=== PATIENT | female | born 1945 | race Caucasian/White ===

== ENCOUNTER 2017-12-12 05:49 | Inpatient (IN) | payer OTHER ==
[2017-11-29 10:51] VITALS: BMI 41.0
--- NOTE | 2017-11-29 11:20 | PAT Medication Instructions ---
Service Date Nov 29, 2017. Current Home Medication List Aspirin (Aspirin 81), 1 TAB PO QPM Celecoxib (CeleBREX), 400 MG PO QAM Cholecalciferol (Vitamin D-3), 1 TAB PO BID Lisinopril (Lisinopril), 1 TAB PO QAM Potassium Chloride (Potassium Chloride Cr), 1 TAB PO TID Ranitidine (Zantac), 1 TAB PO BID Tramadol (Ultram), 50 MG PO Q8H PRN for Pain Medication Instructions For Your Scheduled Surgery -Check with your surgeon for instructions for: Celecoxib (CeleBREX), 400 MG PO QAM - Hold the following medications the morning of surgery: Cholecalciferol (Vitamin D-3), 1 TAB PO BID Lisinopril (Lisinopril), 1 TAB PO QAM Potassium Chloride (Potassium Chloride Cr), 1 TAB PO TID - Take the following medications the morning of surgery with a sip of water: Ranitidine (Zantac), 1 TAB PO BID Tramadol (Ultram), 50 MG PO Q8H PRN for Pain (if needed, can be taken up to four hours before surgery) - Take the following medications as scheduled the night before surgery: Aspirin (Aspirin 81), 1 TAB PO QPM Cholecalciferol (Vitamin D-3), 1 TAB PO BID Potassium Chloride (Potassium Chloride Cr), 1 TAB PO TID Ranitidine (Zantac), 1 TAB PO BID Tramadol (Ultram), 50 MG PO Q8H PRN for Pain (if needed) If you have any questions please call us at [phone] or [phone] or [phone]
--- NOTE | 2017-11-29 12:37 | DIAGNOSTIC IMAGING REPORT ---
CHEST 2 VIEWS ROUTINE CLINICAL HISTORY: PAT preoperative evaluation COMPARISON STUDY: 11/27/2015 FINDINGS: The marker and image is rotated on this study. There are findings of mild stable cardia megaly. Lungs are clear. Diaphragms are smooth. A scoliosis of the spine is present. IMPRESSION: No acute process. Localization markers are placed incorrectly on this exam. Study is considered negative regardless. The above report was generated using voice recognition software. It may contain grammatical, syntax or spelling errors. Electronically signed by: Vinicius Alas M.D. 11/29/2017 12:36 PM Dictated Date/Time: 11/29/2017 12:35 PM
[2017-11-29 13:01] LABS: BASO % 0.3 %; BASO ABS # 0.02 K/uL (0-0.2); EOS % 2.9 %; EOS ABS # 0.17 K/uL (0-0.5); HEMATOCRIT 42.4 % (37-47); HEMOGLOBIN 14.3 g/dL (12.0-16.0); IG# 0.02 K/uL (0.00-0.02); LYMPH % 26.9 %; LYMPH ABS # 1.57 K/uL (1.2-3.4); MEAN CELL VOLUME 90.6 fL (80-100); MEAN CORPUSCULAR HEMOGLOBIN 30.6 pg (25-34); MEAN CORPUSCULAR HGB CONC 33.7 g/dl (32-36); MEAN PLATELET VOLUME 10.5 fL (7.4-10.4); MONO % 9.4 %; MONO ABS # 0.55 K/uL (0.11-0.59); NEUT % 60.2 %; NEUT ABS # 3.51 K/uL (1.4-6.5); PLATELET COUNT 169 K/uL (130-400); RED CELL DISTRIBUTION WIDTH CV 13.3 % (11.5-14.5); RED CELL DISTRIBUTION WIDTH SD 43.8 fL (36.4-46.3); WHITE BLOOD COUNT 5.84 K/uL (4.8-10.8)
[2017-11-29 13:12] LABS: INR 1.1 (0.9-1.1); PTT PATIENT 28.6 SECONDS (21.0-31.0)
[2017-11-29 13:32] LABS: HEMOGLOBIN A1C 4.8 % (4.5-5.6)
[2017-11-29 13:33] LABS: CREATININE 0.8 mg/dl (0.60-1.20)
[2017-11-29 13:34] LABS: ALBUMIN 3.5 gm/dl (3.4-5.0); CALCIUM 9.3 mg/dl (8.5-10.1); POTASSIUM 4.3 mmol/L (3.5-5.1)
--- NOTE | 2017-12-04 13:21 | HISTORY & PHYSICAL EXAMINATION ---
DATE OF ADMISSION: 12/12/2017 CHIEF COMPLAINT: Right knee pain. HISTORY OF PRESENT ILLNESS: Minerva is a 72-year-old female with a multiple year history of right knee pain. The patient rates her pain an 8/10. She has pain with her daily activities. She has limited standing and walking tolerance. Pain is worse with weightbearing. The patient has had injections, NSAID, tramadol, bracing, and home exercise program without relief. She has failed conservative treatment and is scheduled for right knee replacement. PAST MEDICAL HISTORY: Hypertension, hypercholesterolemia, thyroid disease, obesity. She denies heart disease, diabetes or DVT. PAST SURGICAL HISTORY: Left TKA 2015. SOCIAL HISTORY: The patient denies alcohol or tobacco use. She lives in a 2-story home. She is and retired. FAMILY HISTORY: Negative for DVT. MEDICATIONS: Aspirin 81 mg daily, tramadol 50 mg t.i.d. p.r.n., ranitidine 150 mg b.i.d., Klor-Con 10 mEq 3 tablets daily, Celebrex 200 mg b.i.d., lisinopril 20 mg daily, Vitamin D3 1000 units 2 capsules daily, Centrum Silver. ALLERGIES: BACTRIM CAUSES A RASH. REVIEW OF SYSTEMS: See HPI. Ten other systems reviewed, all negative. PHYSICAL EXAMINATION: VITAL SIGNS: Height 5 feet 7 inches, weight 264 pounds, BMI 41. GENERAL: This is a well-developed, well-nourished female who is alert and oriented x3. Mood and affect are appropriate. HEENT: Normocephalic, atraumatic. Mucous membranes are moist and intact. NECK: Supple without lymphadenopathy. HEART: Regular rate and rhythm without murmurs, rubs or gallops. LUNGS: Clear to auscultation without wheezes or rhonchi. ABDOMEN: Soft and nontender. Bowel sounds are equal and active. EXTREMITIES: No ecchymosis, redness or warmth. She has a valgus deformity. Range of motion is from 5-100 degrees. She has no laxity. She is neurovascularly intact with +5/5 strength. X-RAY EXAMINATION: AP and lateral views show joint space narrowing and osteophyte formation. IMPRESSION: Degenerative joint disease, right knee. PLAN: The patient will be admitted for a right total knee arthroplasty with Dr. Pineda. We will plan on aspirin for DVT prophylaxis.
[~2017-12-12] VITALS: Ht 170.2 cm; Wt 120.9 kg
[2017-12-12] VITALS (9 sets, daily range): BP systolic 106–177; BP diastolic 63–81; PULSE 48–67; TEMP 36.2–36.6; O2SAT 95–99; Ht 170.2 cm; Wt 120.9 kg
[~2017-12-12 05:49] MED LIST: ASPI-435 PO; CHOL1CAP67 PO; CLB/200 PO; LSN20 PO; POTA10TA30 PO; RANI150T85 PO; TRAM-10 PO
[2017-12-12] MEDS ORDERED: CeleBREX 200 MG CAP PO SCH (06:00)
[2017-12-12] MEDS ORDERED: CEFAZOLIN 3000MG IV PUSH 22.5 ML IV SCH (06:00)
[2017-12-12] MEDS ORDERED: ROPIVACAINE 5MG/ML 30 ML 150 MG, BUPIVACAINE 0.5% MPF INJ 30 ML, EpINEphrine HCL INJ 0.... INFIL SCH ×8 (06:00)
[2017-12-12] MEDS ORDERED: ACETAMINOPHEN 500 MG TAB PO SCH (06:00)
[2017-12-12] MEDS ORDERED: DEXAMETHASONE 4 MG TAB PO SCH (06:00)
[2017-12-12] MEDS ORDERED: GABAPENTIN 300 MG CAP PO SCH (06:00)
[2017-12-12] MEDS ORDERED: FAMOTIDINE 20 MG TAB PO SCH (06:00)
[2017-12-12] MEDS ORDERED: LACTATED RINGER'S 1000ML 500 ML IV SCH (06:00)
[2017-12-12] MEDS ORDERED: LACTATED RINGER'S 1000ML 1,000 ML IV SCH (06:00)
[2017-12-12] MEDS ORDERED: METOCLOPRAMIDE HCL 10 MG TAB PO SCH (06:00)
[2017-12-12] MEDS ORDERED: ORTHO JOINT ANESTHETIC ONE (07:02)
[2017-12-12] MEDS ORDERED: POVIDONE-IODINE OP SOLN 30 ML BTL ONE (07:02)
[2017-12-12] MEDS ORDERED: BACITRACIN 50000 UNIT VIAL ONE (07:03)
--- NOTE | 2017-12-12 07:06 | History & Physical Bridge Note ---
H&P Re-Evaluation Bridge Note: I have examined the patient, reviewed the History & Physical and in the interval since the performance of the History & Physical I have noted the following changes of clinical significance: No changes noted
[2017-12-12] MEDS ORDERED: KFL/250 PO (07:14)
[2017-12-12] MEDS ORDERED: ROPIVACAINE 0.5% 5 MG/ML 30 ML VIAL ONE (07:32)
[2017-12-12] MEDS ORDERED: BUPIVACAINE 0.5 % 5 MG/1 ML PF 10ML VIAL ONE (07:32)
[2017-12-12] MEDS ORDERED: MIDAZOLAM HCL 1 MG/ML 2ML VIAL ONE ×2 (08:07)
[2017-12-12] MEDS ORDERED: FENTANYL CITRATE INJ 50 MCG/1 ML 2 ML VIAL ONE (08:07)
[2017-12-12] MEDS: TRANEXAMIC ACID INJ 1,000 MG x 2 Bags IV SCH ×4 (08:16→09:20)
[2017-12-12] MEDS ORDERED: PROPOFOL IV EMULSION 10 MG/ML 20 ML VIAL ONE (09:14)
[2017-12-12] MEDS ORDERED: ROCURONIUM BROMIDE 10 MG/ML 5 ML VIAL ONE (09:15)
[2017-12-12] MEDS ORDERED: LIDOCAINE HCL 2% 2 ML VIAL (20MG/ML) ONE (09:15)
[2017-12-12] MEDS ORDERED: ONDANSETRON INJ 2 MG/ML 2 ML VIAL ONE (09:16)
[2017-12-12] MEDS ORDERED: GLYCOPYRROLATE INJ 0.2 MG/ML VIAL ONE (09:16)
[2017-12-12] MEDS ORDERED: DEXAMETHASONE SOD INJ 4 MG/ML VIAL ONE (09:16)
[2017-12-12] MEDS ORDERED: NEOSTIGMINE METHYLSULFATE 5 MG/5 ML SYR ONE (09:16)
--- NOTE | 2017-12-12 09:33 | [facility] Post Operative Brief Note ---
Immediate Operative Summary Operative Date December 12, 2017. Pre-Operative Diagnosis Degenerative Joint Disease, Right Knee Post-Operative Diagnosis Degenerative Joint Disease, Right Knee Procedure(s) Performed Right Total Knee Arthroplasty utilizing Michele nephenMarkit journey to non-block total knee arthroplasty size 5 femur 5 tibia 10 polyethylene [address] Js Pineda Cell Tender Helper Surgeon(s) Sanford Araujo PA-C, Dr. Conrado Tate Estimated Blood Loss 5mL Findings Consistent with Post-Op Diagnosis Specimens Permanent Solution: A.) Right Knee Bone and Tissue Anesthesia Type General Complication(s) none Disposition Disposition: Recovery Room / PACU
--- NOTE | 2017-12-12 09:34 | [facility] Operative Report ---
Operative Report Operative Date December 12, 2017. Pre-Operative Diagnosis Degenerative Joint Disease, Right Knee Post-Operative Diagnosis Degenerative Joint Disease, Right Knee Procedure(s) Performed Right Total Knee Arthroplasty utilizing Michele G[employer] journey to non-block total knee arthroplasty size 5 femur 5 tibia 10 polyethylene [address] Js Pineda Pan Washer Surgeon(s) Sanford Araujo PA-C, Dr. Conrado Tate Estimated Blood Loss 5mL Findings Intraoperative findings include severe end-stage DJD subchondral cystic changes eburnated bone marginal osteophytes varus alignment with [id number] degenerative changes Specimens Permanent Solution: A.) Right Knee Bone and Tissue Anesthesia Type General Complication(s) none Disposition Recovery Room / PACU Indications Patient presents after failed attempts at conservative management including physical therapy anti-inflammatories relative rest of the examination revealed to be evidence of crepitation medial joint line pain tenderness moderate effusion with joint line pain tenderness with a positive Javed circumduction findings pseudo-ligamentous laxity although response to injections anti- inflammatories and bracing Description of Procedure After proper prepping and draping of the Right lower extremity anterior midline incision was made over the region of the extensor extensor mechanism after meticulous hemostasis was obtained and maintained in subcutaneous tissues a medial parapatellar incision was made The patella was subluxed lateralward the medial lateral gutter were cleaned from any hypertrophic synovitis and scar tissue of the distal femoral block was placed and the distal femoral osteotomy cut was made subsequently the chamfers anterior and posterior osteotomy cuts were made utilizing the 4-in-1 block the tibia was subsequently subluxed anteriorward medial and ateral meniscal remnants were excised in their entirety remnants of the anterior and posterior cruciate ligaments were excised in their entirety excellent exposure of the proximal tibia was obtained the tibial osteotomy guide was placed on the proximal tibial osteotomy cut was made once again the knee was irrigated with copious amounts of sterile saline solution the patella was subsequently everted lateralward thickened scar tissue around the patella was removed the patella was subsequently cut utilizing a freehand technique and was drilled prepared for final preparation and placement of patella socially flexion-extension gaps were checked and the equal and symmetric trials were placed to the appropriate femoral and tibial trials with poly-spacer being placed for equal flexion and extension gaps and full range of motion including extension to 0 and flexion to 140 the trial components after having been taken to recovery range of motion was subsequently removed meticulous hemostasis was obtained and maintained subsequently a knee block injection of joint cocktail including ropivacaine 0.5% 150 mg. Bupivacaine 0.5 % epinephrine 1-200,030 mL's toradol 30 mg dexamethasone 4 mg ketamine 10 mg clonidine 100 micrograms normal saline solution 30 mg was infiltrated into the soft tissues of the posterior knee medial lateral gutters and periosteal synovium special attention was paid to protect neurovascular structures at all times subsequently trial components having been removed the knee was irrigated with sterile saline solution. debris was removed the proximal tibia was subsequently prepared and was made ready for the placement of the tibial component tibial component was also cemented and tamped into position the femoral component was subsequently placed and cemented in the position the patellar component was subsequently cemented in position because hemostasis once again obtained and maintained wound having been thoroughly irrigated with debridement and debridement lavage was performed as well as a medial parapatellar incision closed with #1 Vicryl in interrupted fashion subcutaneous was closed with #2 Vicryl skin was closed with skin clips. PA-C was necessary for prepping and drapping as well as wound closure of deep fascia Sub cutaneous tissue and skin and was necessary for the case. A sterile compressive dressing was placed patient was taken to recovery in stable condition of report dictated by Edwin I attest to the content of the Intraoperative Record and any orders documented therein. Any exceptions are noted below. I attest to the content of the Intraoperative Record and any orders documented therein. Any exceptions are noted below.
[2017-12-12] MEDS ORDERED: EpHEDrine SULFATE 50MG/5ML SYR ONE (09:51)
[2017-12-12] MEDS ORDERED: EpHEDrine SULFATE INJ 50 MG/ML AMP IV PRN (10:00)
[2017-12-12] MEDS ORDERED: LABETALOL HCL IV 5 MG/ML 20ML IV PRN (10:00)
[2017-12-12] MEDS ORDERED: HYDROmorphone INJ 0.5 MG/0.5 ML SYR IV PRN (10:00)
[2017-12-12] MEDS ORDERED: MEPERIDINE HCL 25 MG/ML CARP IV PRN (10:00)
[2017-12-12] MEDS ORDERED: ATROPINE SULFATE 0.1 MG/ML 5ML SYR IV PRN (10:00)
[2017-12-12] MEDS ORDERED: FENTANYL CITRATE INJ 50 MCG/1 ML 2 ML VIAL IV PRN (10:00)
[2017-12-12] MEDS ORDERED: ONDANSETRON INJ 2 MG/ML 2 ML VIAL IV PRN ×2 (10:00→10:15)
[2017-12-12] MEDS ORDERED: CEFAZOLIN IV 2,000 MG in DEXTROSE 5% 50ML 50 ML IV SCH (10:15)
[2017-12-12] MEDS ORDERED: MAGNESIUM HYDROXIDE SUSP 30 ML UDC PO PRN (10:15)
[2017-12-12] MEDS ORDERED: TRAMADOL HCL 50 MG TAB PO PRN (10:15)
[2017-12-12] MEDS ORDERED: BISACODYL 10 MG SUPP PR PRN (10:15)
[2017-12-12] MEDS ORDERED: ALUMINUM/MAGNESIUM/SIMETH (MAALOX MAX) 30 ML UDC PO PRN (10:15)
[2017-12-12] MEDS ORDERED: MoRPHine SULFATE 4 MG/ML 1 ML CARP\\VIAL IV PRN (10:15)
--- NOTE | 2017-12-12 10:34 | DIAGNOSTIC IMAGING REPORT ---
RIGHT KNEE 2 VIEWS History: Right total knee arthroplasty. Degenerative arthritis. Postop. FINDINGS: The patient is status post a right total knee arthroplasty. The hardware is intact. No fracture or dislocation. Skin blayne and surgical drains are in place. IMPRESSION: Right total knee arthroplasty. No evidence for hardware complication. Electronically signed by: Alex Moraes M.D. 12/12/2017 10:33 AM Dictated Date/Time: 12/12/2017 10:32 AM
--- NOTE | 2017-12-12 11:57 | Anesthesiology Progress Note ---
Anesthesia Post Op Note Date & Time December 12, 2017 at 11:57 Vital Signs Pain Intensity: 0.0 Vital Signs Past 12 Hours Date Time Temp Pulse Resp B/P (MAP) Pulse Ox O2 Delivery O2 Flow Rate FiO2 12/12/17 11:42 48 17 151/65 (93) 98 Nasal Cannula 2.0 12/12/17 11:10 36.4 56 16 155/78 (103) 98 Nasal Cannula 2.0 12/12/17 11:10 Nasal Cannula 2.0 12/12/17 11:10 Nasal Cannula 2.0 12/12/17 11:00 52 16 165/68 99 Nasal Cannula 2 12/12/17 10:50 36.0 57 15 152/56 100 Nasal Cannula 2 12/12/17 10:40 58 17 138/58 96 Nasal Cannula 2 12/12/17 10:30 57 14 142/68 94 Oxymask 8 12/12/17 10:20 63 15 163/72 97 Oxymask 8 12/12/17 10:13 36.2 83 16 160/74 93 Oxymask 8 12/12/17 06:50 36.6 54 20 177/81 99 Room Air Notes Mental Status: alert / awake / arousable, participated in evaluation Pt Amnestic to Procedure: Yes Nausea / Vomiting: adequately controlled Pain: adequately controlled Airway Patency, RR, SpO2: stable & adequate BP & HR: stable & adequate Hydration State: stable & adequate Anesthetic Complications: no major complications apparent
[2017-12-12] MEDS: FERROUS GLUCONATE 324 MG TAB PO SCH ×2 (12:43→18:27)
[2017-12-12] MEDS: ACETAMINOPHEN 500 MG TAB PO SCH ×2 (12:43→19:14)
[2017-12-12] MEDS: POTASSIUM CHLORIDE 10 MEQ TABCR PO SCH ×2 (13:25→20:53)
[2017-12-12] MEDS: D5W AND 1/2NSS + 20MEQ KCL 1,000 ML IV SCH ×2 (13:25→23:06)
[2017-12-12] MEDS ORDERED: POTASSIUM CHLORIDE PO SCH (14:00)
[2017-12-12] MEDS: CEFAZOLIN IV 2,000 MG in SYRINGE 0 ML IV SCH ×2 (16:23→23:09)
[2017-12-12] MEDS: DOCUSATE SODIUM 100 MG CAP PO SCH (20:52)
[2017-12-12] MEDS: CeleBREX 200 MG CAP PO SCH (20:52)
[2017-12-12] MEDS: RANITIDINE HCL 150 MG TAB PO SCH (20:52)
[2017-12-12] MEDS: CHOLECALCIFEROL 1000 INTER.UNIT TAB PO SCH (20:52)
[2017-12-12] MEDS: SENNA 8.6 MG TAB PO SCH (20:52)
[2017-12-12] MEDS: ASPIRIN 81 MG ECTAB PO SCH (20:53)
[2017-12-12] MEDS ORDERED: CHOLECALCIFEROL PO SCH (21:00)
[2017-12-12] MEDS ORDERED: NURSING VERBAL MED ORDER ONE (21:00)
[2017-12-13 03:00] VITALS: BP 120/72; PULSE 50; TEMP 36.7; O2SAT 96
[2017-12-13] MEDS: ACETAMINOPHEN 500 MG TAB PO SCH ×3 (03:24→20:42)
[2017-12-13 07:03] LABS: HEMATOCRIT 35.5 % (37-47); HEMOGLOBIN 12.4 g/dL (12.0-16.0); MEAN CELL VOLUME 88.5 fL (80-100); MEAN CORPUSCULAR HEMOGLOBIN 30.9 pg (25-34); MEAN CORPUSCULAR HGB CONC 34.9 g/dl (32-36); PLATELET COUNT 148 K/uL (130-400); RED CELL DISTRIBUTION WIDTH CV 13.1 % (11.5-14.5); RED CELL DISTRIBUTION WIDTH SD 42.3 fL (36.4-46.3)
[2017-12-13 07:37] LABS: CALCIUM 8.2 mg/dl (8.5-10.1); CREATININE 0.97 mg/dl (0.60-1.20); POTASSIUM 4.6 mmol/L (3.5-5.1)
[2017-12-13 07:52] VITALS: BP 108/69; PULSE 54; TEMP 36.8; O2SAT 92
--- NOTE | 2017-12-13 07:58 | Orthopedic Progress Note ---
Orthopedic Progress Note Date of Service December 13, 2017. Subjective Post OP Day: 1 Reports: feeling well, Denies: chest pain, SOB, nausea / vomiting, light headedness, calf pain Objective calves soft nontender, N/V intact, capillary refill less than 2 sec., dressing C /D/I, A&O x3, toes mobile, hemovac drainage (475/200CC PER SHIFT) Date Time Temp Pulse Resp B/P (MAP) Pulse Ox O2 Delivery O2 Flow Rate FiO2 12/13/17 07:52 36.8 54 16 108/69 (82) 92 Room Air 12/13/17 03:00 36.7 50 14 120/72 (88) 96 Room Air 12/12/17 23:08 36.6 58 15 121/77 (92) 96 Room Air 12/12/17 19:58 36.3 67 16 109/66 (80) 95 Room Air 12/12/17 19:15 Room Air 12/12/17 16:16 Room Air 12/12/17 16:00 36.2 54 16 106/63 (77) 97 Room Air 12/12/17 14:07 61 17 132/77 (95) 98 Nasal Cannula 2.0 12/12/17 13:10 66 18 136/70 (92) 96 12/12/17 12:20 57 16 134/75 (94) 99 Nasal Cannula 2.0 12/12/17 11:42 48 17 151/65 (93) 98 Nasal Cannula 2.0 12/12/17 11:10 36.4 56 16 155/78 (103) 98 Nasal Cannula 2.0 12/12/17 11:10 Nasal Cannula 2.0 12/12/17 11:10 Nasal Cannula 2.0 12/12/17 11:00 52 16 165/68 99 Nasal Cannula 2 12/12/17 10:50 36.0 57 15 152/56 100 Nasal Cannula 2 12/12/17 10:40 58 17 138/58 96 Nasal Cannula 2 12/12/17 10:30 57 14 142/68 94 Oxymask 8 12/12/17 10:20 63 15 163/72 97 Oxymask 8 12/12/17 10:13 36.2 83 16 160/74 93 Oxymask 8 Laboratory Results 24 Hours: Test 12/13/17 06:51 Hematocrit 35.5 % Hemoglobin 12.4 g/dL Assessment & Plan Assessment: POD#1 SP RIGHT TKA Plan: PT/OT DVT PROPH- ASA 81MG BID PAIN MANAGEMENT- ALEJANDRA, TYLENOL DC PLANNING- DC HOME TOMORROW WITH HOME PT. DC DRESSING/DRAIN IN AM.
[2017-12-13] MEDS: RANITIDINE HCL 150 MG TAB PO SCH ×2 (08:42→20:44)
[2017-12-13] MEDS: DOCUSATE SODIUM 100 MG CAP PO SCH ×2 (08:42→20:42)
[2017-12-13] MEDS: POTASSIUM CHLORIDE 10 MEQ TABCR PO SCH ×3 (08:42→20:43)
[2017-12-13] MEDS: FERROUS GLUCONATE 324 MG TAB PO SCH ×3 (08:43→18:03)
[2017-12-13] MEDS: CHOLECALCIFEROL 1000 INTER.UNIT TAB PO SCH ×2 (08:43→20:42)
[2017-12-13] MEDS: ASPIRIN 81 MG ECTAB PO SCH ×2 (08:43→20:43)
[2017-12-13] MEDS: CeleBREX 200 MG CAP PO SCH ×2 (08:43→20:42)
[2017-12-13] MEDS: MULTIVITAMIN TAB PO SCH (08:43)
[2017-12-13] MEDS: D5W AND 1/2NSS + 20MEQ KCL 1,000 ML IV SCH (08:43)
[2017-12-13] MEDS: LISINOPRIL 20 MG TAB PO SCH (08:43)
[2017-12-13 11:01] VITALS: BP 158/74; PULSE 63; TEMP 36.9; O2SAT 99
[2017-12-13] MEDS: OXYCODONE HCL IR 5 MG TAB (IMMEDIATE RELEASE) PO PRN ×2 (11:13→22:22)
[2017-12-13 16:19] VITALS: BP 118/65; PULSE 66; TEMP 36.6; O2SAT 97
[2017-12-13] MEDS: SENNA 8.6 MG TAB PO SCH (20:43)
[2017-12-13 23:27] VITALS: BP 123/86; PULSE 69; TEMP 36.7; O2SAT 96
[2017-12-14] MEDS: ACETAMINOPHEN 500 MG TAB PO SCH ×2 (04:32→12:44)
[2017-12-14 06:14] VITALS: BP 109/71; PULSE 54; TEMP 36.7; O2SAT 96
[2017-12-14] MEDS: CeleBREX 200 MG CAP PO SCH (07:20)
[2017-12-14] MEDS: RANITIDINE HCL 150 MG TAB PO SCH (07:21)
[2017-12-14] MEDS: LISINOPRIL 20 MG TAB PO SCH (07:21)
[2017-12-14] MEDS: DOCUSATE SODIUM 100 MG CAP PO SCH (07:21)
[2017-12-14] MEDS: POTASSIUM CHLORIDE 10 MEQ TABCR PO SCH (07:21)
[2017-12-14] MEDS: FERROUS GLUCONATE 324 MG TAB PO SCH ×2 (07:21→12:43)
[2017-12-14] MEDS: MULTIVITAMIN TAB PO SCH (07:21)
[2017-12-14] MEDS: ASPIRIN 81 MG ECTAB PO SCH (07:22)
[2017-12-14] MEDS: OXYCODONE HCL IR 5 MG TAB (IMMEDIATE RELEASE) PO PRN ×2 (07:24→12:45)
--- NOTE | 2017-12-14 08:42 | Orthopedic Progress Note ---
Orthopedic Progress Note Date of Service December 14, 2017. Subjective Post OP Day: 2 Reports: feeling well, Denies: chest pain, SOB, nausea / vomiting, light headedness, calf pain Objective calves soft nontender, N/V intact, capillary refill less than 2 sec., dressing C /D/I (SILVERLON), A&O x3, toes mobile Date Time Temp Pulse Resp B/P (MAP) Pulse Ox O2 Delivery O2 Flow Rate FiO2 12/14/17 06:14 36.7 54 15 109/71 (84) 96 Room Air 12/14/17 01:00 Room Air 12/13/17 23:27 36.7 69 16 123/86 (98) 96 Room Air 12/13/17 16:19 36.6 66 16 118/65 (82) 97 Room Air 12/13/17 15:25 Room Air 12/13/17 11:01 36.9 63 17 158/74 (102) 99 Room Air Assessment & Plan Assessment: POD#2 SP RIGHT TKA Plan: PT/OT DVT PROPH- ASA 81MG BID PAIN MANAGEMENT- ALEJANDRA, TYLENOL DC PLANNING- DC HOME TODAY WITH HOME PT. .
--- NOTE | 2017-12-14 08:43 | Discharge Instructions ---
Discharge Instructions Date of Service December 14, 2017. Admission Reason for Admission: Right Knee Osteoarthritis Discharge Discharge Diagnosis / Problem: SP RIGHT TKA Discharge Goals Goal(s): Decrease discomfort, Improve function, Increase independence Activity Recommendations Activity Limitations: per Instructions/Follow-up section . Instructions / Follow-Up Instructions / Follow-Up ACTIVITY RECOMMENDATIONS: SELF CARE INSTRUCTIONS AFTER TOTAL KNEE REPLACEMENT A. You may need to continue a physical therapy program after discharge from the hospital. There are several options available to you. Your doctor will assist you in selecting the best one for you. 1. An out-patient facility 2 to 3 times a week for therapy or home therapy. 2. Continue working on all exercises taught to you in the hospital. Your goals should be to increase bending of your knee to 90 degrees and beyond and to fully straighten your knee. B. You may progress at your own pace from walking with a walker or crutches to a cane; then to no assistive devices. C. Make walking a part of your daily routine. Be up as much as comfortable with rest periods throughout the day. Rest with leg elevation is very important. Use the ice wrap frequently for the first 3-4 weeks. D. There are no restrictions on activities. You may ride in a car, shop, participate in pattern changer and all social activities. E. Wear the long elastic stockings (JOHN hose) 20 hours a day for 2 weeks after surgery. They can be removed several times a day for laundering and for a bath. F. You may shower, no tub baths until cleared by your doctor. SPECIAL CARE INSTRUCTIONS: VERY IMPORTANT TO READ AND REVIEW A. There are a few signs you need to watch for after you are home. Call [facility] if you notice any of the followin. Increased severe knee pain. Some pain is expected especially when you exercise. 2. Increased swelling in your leg or knee; pain or swelling of the calf muscle in either lower leg. 3. Any fluid drainage from the incision. 4. Shortness of breath or chest pain. B. Please call [facility] at if you have any concerns or questions about your operation or recovery. The doctor or his nurse will return your call promptly. C. You must take antibiotics before dental work, bladder, bowel or other surgery. Your doctor will provide you with a permanent care to carry describing this precaution. IMPORTANT: * REMEMBER TO TAKE ASPIRIN, 81 MG, TWICE DAILY FOR 4 WEEKS UNLESS OTHERWISE DIRECTED. THIS IS YOUR BLOOD THINNER. * HIGH RISK PATIENTS MAY BE PRESCRIBED A STRONGER BLOOD THINNER. THIS WILL BE PROVIDED AT DISCHARGE. * CALL IF INCREASED PAIN, REDNESS, DRAINAGE OR FEVER GREATER THAT 101. * WEAR JOHN HOSE 20 HOURS PER DAY FOR 2 WEEKS. * YOU MAY HAVE A LARGE BAND-AID LIKE DRESSING (SILVERON). THIS WILL REMAIN ON YOUR INCISION FOR 7 DAYS, THEN CAN BE REMOVED. IF INCISION IS LEAKING THROUGH DRESSING, CALL THE OFFICE . FOLLOW UP VISIT: If appointment is not already scheduled: Please call [facility] to make a follow-up appointment for 2 weeks after your surgery at . Current Hospital Diet Patient's current hospital diet: Regular Diet Discharge Diet Recommended Diet: Regular Diet Procedures Procedures Performed: Right Total Knee Arthroplasty utilizing RootsRated journey to non-block total knee arthroplasty size 5 femur 5 tibia 10 polyethylene 38 oval patella Pending Studies Studies pending at discharge: no Laboratory Results Hemoglobin A1c Test 11/29/17 11:34 Range/Units Estimated Average Glucose 91 mg/dl Hemoglobin A1c 4.8 4.5-5.6 % Medical Emergencies . Who to Call and When: Medical Emergencies: If at any time you feel your situation is an emergency, please call [phone] immediately. . Non-Emergent Contact Non-Emergency issues call your: Surgeon . "Provider Documentation" section prepared by Jennifer Mcclellan. . [place] Drug Monitoring Program Search Results: patient reviewed within database, no issues identified
[2017-12-14] MEDS ORDERED: CLB200 PO (08:46)
[2017-12-14] MEDS ORDERED: SENN-61 PO (08:46)
[2017-12-14] MEDS ORDERED: ONDA-170 PO (08:46)
[2017-12-14] MEDS ORDERED: ACET-24 PO (08:46)
[2017-12-14] MEDS ORDERED: RXC5 PO (08:46)
[2017-12-14] MEDS ORDERED: ASPI-435 PO (08:46)
[2017-12-14] MEDS: CHOLECALCIFEROL 1000 INTER.UNIT TAB PO SCH (09:12)
[2017-12-14 11:15] VITALS: BP 109/71; PULSE 54; TEMP 36.7; O2SAT 96
== END 2017-12-14 14:00 | disposition home health service (06) | DRG 470 ==
LOC: C.ACU 05:49 → C.3E 06:01 → ENRESERV 10:50
PROVIDERS: ADMIT Orthopaedic Surgery; ATTEND Orthopaedic Surgery
PROC: 0SRC0J9 Replacement of Right Knee Joint with Synthetic Substitute, Cemented, Open Approach (ICD-10-PCS; principal; 2017-12-12 08:30)
DX: M17.11 Unilateral primary osteoarthritis, right knee (principal); Z68.41 Body mass index [BMI] 40.0-44.9, adult; I10 Essential (primary) hypertension; E66.9 Obesity, unspecified; Z79.899 Other long term (current) drug therapy; Z79.82 Long term (current) use of aspirin; Z88.2 Allergy status to sulfonamides